=== PATIENT | male | born 1985 | race Caucasian/White ===

== ENCOUNTER 2024-11-27 14:22 | Emergency (ER) | payer OTHER, SELFPAY ==
[2024-11-27 14:27] VITALS: BP 113/88
--- NOTE | 2024-11-27 17:08 | ED.MUSCINJ ---
HPI-Injury
General
Chief Complaint: Musculo-Skeletal Complaint
Time Seen by Provider: 11/27/24 16:22
Nursing documentation reviewed up to this point in time: agreed with
History of Present Illness-Injury
Initial Injury comments:
39-year-old male presents to the ER for evaluation of abrupt onset pain in his right upper extremity while he was trying to forcefully move a truck. He felt and heard a pop. He has pain with movement of his right upper extremity now. He is
right-handed. He denies distal paresthesias. He did take ibuprofen at 1230 today at time of injury. He is also been applying ice intermittently with minimal improvement in his symptoms. No prior history of injury to this extremity. No prior
history of orthopedic surgery to this arm. He is otherwise healthy
Review of Systems
Review of Systems
Allergies reviewed?: Yes
Phy Exam
Physical Exam
Physical Exam:
Patient is awake, alert, appears in no acute distress, no pain on palpation bilateral shoulders, bilateral elbows, bilateral forearms, right upper extremity with Santiago deformity, no pain on palpation in the right antecubital fossa, no limitation in
active supination pronation of the right forearm although he does report some discomfort, brisk cap refill present to the digits of the right hand with 2+ radial pulses, GCS is 15
Injury Course
Orders/Labs/Results
Orders:
Orders
11/27/24 16:32
CR Elbow - Right Min 3 Views Urgent
Comment: clinical exam c/w biceps tendon rupture
Reason For Exam: trauma
11/27/24 16:34
Sling Right-Treatment ONCE
MDM/Problems Addressed
Differential Diagnosis Includes:
Differential diagnosis to consider but not limited to biceps tendon sprain, strain, fracture along with other etiologies considered
*Radiology
Radiology exam reviewed: preliminary read by ED provider (I independently viewed and interpreted x-rays of the right elbow showing no fracture, no malalignment) and radiology read reviewed (In agreement with preliminary reading)
*Pulse Oximetry
SaO2: 99
Oxygen Mode of Delivery: Room air
Patient hypoxic: no
*Critical Care Note
Total Time (30-74mins, 75-104mins- exclusive of procedures): Not Applicable
Update Note
Update Note:
I discussed with patient and clinical exam consistent with biceps tendon rupture and need for outpatient orthopedic evaluation for likely surgical repair. They agree with plan for sling, ice, as needed ibuprofen. Will obtain x-ray to r/o
occult fx. They have no questions at the current time
Late entry-I discussed with patient and present at bedside no evidence for acute process seen on x-ray. We again discussed discharge instructions and need to follow-up with orthopedics. They expressed understanding of discharge plan and felt
comfortable. They have no questions prior to leaving the department
ED Attending Note
-
Portions of this chart may have been created with voice recognition software.� Occasional wrong word or��sound alike� substitutions may have occurred due to the inherent limitations of voice recognition software.
Discharge Plan
Departure
Patient Disposition: Home (Routine Discharge)
Date of Disposition: 11/27/24
Time of Disposition: 17:24
Patient with high blood pressure during this ER visit?: No
Discharge Problem:
Biceps tendon rupture, traumatic
Instructions: Biceps Tendon Rupture (DC)
Prescriptions:
No Action
No Current Medications
0
Referrals:
Nadeem Chen DO [Family Provider, Family Practice]
Nayely Latif DO [Active, Orthopedics] - Next open appointment
Activity Restrictions/Additional Instructions:
Limit use of right hand until seen in follow-up with orthopedics for further care. Use sling as much as possible to help with discomfort and healing. Use ibuprofen and Tylenol as available [id number] as needed for discomfort. Please apply
ice for 20 minutes 3-4 times throughout the day to help with pain and swelling. Please contact orthopedics office on Thursday to schedule appointment for reevaluation and further care. Return to the ER for any concern
Interventions
Interventions:
*Risk Screen - Suicide Last Done: 11/27/24 14:28
*General Assessment Last Done: 11/27/24 14:28
*Neglect/Abuse Screening Last Done: 11/27/24 14:28
*ED- Fall Risk Assessment Last Done: 11/27/24 17:10
*ED COVID-19 Vaccine History Last Done: 11/27/24 14:28
*ED Influenza Vaccine History Last Done: 11/27/24 14:28
*Nursing Disposition Last Done: 11/27/24 18:15
ED-Musculoskeletal Assessment Last Done: 11/27/24 17:10
Discharge Date and Time
Discharge Date/Time: 11/27/24 18:16
Print Language: [place] K[place]
[2024-11-27 17:10] VITALS: BP 136/81; BMI 26.6
== END 2024-11-27 18:16 | disposition home or self-care (01) ==
LOC: EMR 14:22
PROVIDERS: EMERGENCY PHYSICIAN Emergency Medicine; FAMILY PHYSICIAN Family Medicine
DX: S46.211A Strain of muscle, fascia and tendon of other parts of biceps, right arm, initial encounter (principal); X50.1XXA Overexertion from prolonged static or awkward postures, initial encounter; Y93.89 Activity, other specified
CPT/HCPCS: 99283; 73080